=== PATIENT | male | born 1955 ===

== ENCOUNTER 2017-08-21 11:25 | Observation (INO) | payer MEDICAID ==
[2017-08-21 11:42] VITALS: BMI 26.1
--- NOTE | 2017-08-21 12:49 | RAD ---
PROCEDURE: CHEST RADIOGRAPH, 1 VIEW HISTORY: SOB COMPARISON: Chest radiograph dated 05/12/2015. FINDINGS: LUNGS: Clear. PLEURA: No pneumothorax or pleural fluid seen. CARDIOVASCULAR: Normal. OSSEOUS STRUCTURES: Unchanged. VISUALIZED UPPER ABDOMEN: Normal. OTHER FINDINGS: None. IMPRESSION: No active disease.
[2017-08-21 12:50] LABS: BASO % 0.3 % (0.0-2.0); EOS # 0.1 K/uL (0.0-0.7); EOS % 1.1 % (0.0-4.0); HEMOGLOBIN 13.8 g/dL (12.0-18.0); LYMPH # 3.5 K/uL (1.0-4.3); LYMPH % 31.2 % (20.0-40.0); MEAN CORPUSCULAR HEMOGLOBIN 31.2 pg (27.0-31.0); MEAN CORPUSCULAR HGB CONC 35.1 g/dL (33.0-37.0); MEAN PLATELET VOLUME 11.1 fL (7.2-11.7); MONO # 0.8 K/uL (0.0-0.8); MONO % 7.5 % (0.0-10.0); NEUT # 6.8 K/uL (1.8-7.0); NEUT % 59.9 % (50.0-75.0); NRBC % 0.1 % (0.0-2.0); RBC 4.42 Mil/uL (4.40-5.90); RED CELL DISTRIBUTION WIDTH 13.4 % (11.5-14.5); WHITE BLOOD COUNT 11.3 K/uL (4.8-10.8)
[2017-08-21 12:58] LABS: INR 1.1; PARTIAL THROMBOPLASTIN TIME 41 SECONDS (21-34)
[2017-08-21 13:03] LABS: ALB/GLOB RATIO 1.1 (1.0-2.1); ALBUMIN 4.4 g/dL (3.5-5.0); ALT/SGPT 9 U/L (21-72); AST/SGOT 16 U/L (17-59); BLOOD UREA NITROGEN 18 mg/dL (9-20); CALCIUM 9.9 mg/dl (8.6-10.4); GFR AFRICAN-AMERICAN > 60; GFR NON-AFRICAN AMERICAN > 60; LIPASE 132 U/L (23-300)
[2017-08-21 13:14] LABS: B-TYPE NATRIURETIC PEPTIDE 168 pg/mL (0-900); CK-MB 0.67 ng/mL (0.0-3.38)
[2017-08-21 13:28] LABS: D DIMER < 200 ng/mlDDU (0-243)
[2017-08-21 13:48] LABS: SQUAMOUS EPITHIAL < 1 /hpf (0-5); URINE BILIRUBIN NEGATIVE (NEGATIVE); URINE BLOOD NEGATIVE (NEGATIVE); URINE CLARITY Clear (Clear); URINE COLOR Yellow (YELLOW); URINE GLUCOSE (UA) 1+ mg/dL (Normal); URINE LEUKOCYTE ESTERASE NEG Leu/uL (Negative); URINE PROTEIN NEGATIVE (NEGATIVE)
--- NOTE | 2017-08-21 13:55 | C.PDOC ---
History Of Present Illness 61-year-old male, PMHx includes Hypertension and Diabetes, presents to the emergency department with complaints of shortness of breath for the past two days. Patient notes "a little bit mid-sternal chest pain." Secondary complaint is non-traumatic right foot pain for the past two days. Time Seen by Provider: 08/21/17 11:59 Chief Complaint (Nursing): Shortness Of Breath History Per: Patient History/Exam Limitations: no limitations Current Symptoms Are (Timing): Still Present Past Medical History Reviewed: Historical Data, Nursing Documentation, Vital Signs Vital Signs: Last Vital Signs Temp 98 F 08/21/17 16:59 Pulse 79 08/21/17 16:59 Resp 18 08/21/17 16:59 BP 126/79 08/21/17 16:59 Pulse Ox 98 08/21/17 16:59 - Medical History PMH: HTN, Hypercholesterolemia Denies: Chronic Kidney Disease Surgical History: Cholecystectomy (12/2015) - [facility] Procedures VACCINATION NEC (03/11/14) Family History: States: No Known Family Hx - Social History Hx Tobacco Use: No Hx Alcohol Use: No Hx Substance Use: No - Immunization History Hx Tetanus Toxoid Vaccination: Yes Hx Influenza Vaccination: Yes Hx Pneumococcal Vaccination: Yes Review Of Systems Constitutional: Negative for: Fever, Chills Cardiovascular: Negative for: Chest Pain, Palpitations Respiratory: Positive for: Shortness of Breath Musculoskeletal: Positive for: Foot Pain (right first toe). Negative for: Back Pain Neurological: Negative for: Weakness, Numbness, Headache, Dizziness Physical Exam - Physical Exam Appears: Non-toxic, No Acute Distress, Other (speaking in full sentences) Skin: Warm, Dry, No Rash Head: Normacephalic Eye(s): bilateral: PERRL Nose: Normal Oral Mucosa: Moist Lips: Normal Appearing Neck: Normal ROM Cardiovascular: Rhythm Regular, No Murmur Respiratory: Normal Breath Sounds, No Decreased Breath Sounds, No Accessory Muscle Use Extremity: Normal ROM, No Deformity, Other (right lower extremity: swelling and tenderness to first digit) Pulses: Left Dorsalis Pedis: Normal, Right Dorsalis Pedis: Normal Neurological/Psych: Oriented x3, Normal Speech ED Course And Treatment - Laboratory Results Result Diagrams: 08/21/17 12:46 08/21/17 12:46 ECG: Interpreted By Me ECG Rhythm: Sinus Rhythm ECG Interpretation: No Acute Changes Rate From EC O2 Sat by Pulse Oximetry: 100 (RA) Pulse Ox Interpretation: Normal - Other Rad CXR X-Ray: Viewed By Me, Read By Radiologist Interpretation: Accession No. : [id number]. Patient Name / ID : JAKE Calderón / [id number]. Exam Date : 08/21/2017 12:37:24 ( Approved ). Study Comment : Sex / Age : M / [id number]. Creator : Poli Mir MD. Dictator : Poli Mir MD. Router Operator Radial : Fur Stylist : Poli Mir MD. Approver2 : Report Date : 08/21/2017 12:48:21. My Comment : . PROCEDURE: CHEST RADIOGRAPH, 1 VIEW. HISTORY: SOB. COMPARISON: Chest radiograph dated 05/12/2015. FINDINGS: LUNGS: Clear. PLEURA: No pneumothorax or pleural fluid seen. CARDIOVASCULAR: Normal. OSSEOUS STRUCTURES: Unchanged. VISUALIZED UPPER ABDOMEN: Normal. OTHER FINDINGS: None. IMPRESSION: No active disease. Progress Note: EKG, bloodwork Chest X-Ray, UA ordered and reviewed. Pt treated with Toradol and Aspirin. Disposition - Disposition Disposition: HOME/ ROUTINE - Scribe Statement The provider has reviewed the documentation as recorded by the Scribe (Juan Jose Ott) All medical record entries made by the Scribe were at my direction and personally dictated by me. I have reviewed the chart and agree that the record accurately reflects my personal performance of the history, physical exam, medical decision making, and the department course for this patient. I have also personally directed, reviewed, and agree with the discharge instructions and disposition.
--- NOTE | 2017-08-21 13:55 | C.PDOC ---
Time Seen by Provider: 08/21/17 11:59 Chief Complaint (Nursing): Shortness Of Breath Past Medical History Vital Signs: Last Vital Signs Temp 98 F 08/21/17 13:53 Pulse 87 08/21/17 13:53 Resp 18 08/21/17 13:53 BP 126/73 08/21/17 13:53 Pulse Ox 98 08/21/17 13:53 - Medical History PMH: HTN, Hypercholesterolemia Denies: Chronic Kidney Disease Surgical History: Cholecystectomy (12/2015) - [facility] Procedures VACCINATION NEC (03/11/14) - Social History Hx Tobacco Use: No Hx Alcohol Use: No Hx Substance Use: No - Immunization History Hx Tetanus Toxoid Vaccination: Yes Hx Influenza Vaccination: Yes Hx Pneumococcal Vaccination: Yes ED Course And Treatment - Laboratory Results Result Diagrams: 08/21/17 12:46 08/21/17 12:46 O2 Sat by Pulse Oximetry: 98 Disposition - Disposition Forms: [employer] (Indonesian)
[2017-08-21 19:28] VITALS: RESP 20
--- NOTE | 2017-08-21 19:58 | CP.PCM.HP ---
Past Patient History - Infectious Disease Hx of Infectious Diseases: None - Past Medical History & Family History Past Medical History?: Yes - Past Social History Smoking Status: Unknown If Ever Smoked - CARDIAC Hx Hypercholesterolemia: Yes Hx Hypertension: Yes - PULMONARY Hx Respiratory Disorders: No - RENAL Hx Chronic Kidney Disease: No - ENDOCRINE/METABOLIC Hx Diabetes Mellitus Type 2: Yes - MUSCULOSKELETAL/RHEUMATOLOGICAL Hx Falls: No - GASTROINTESTINAL Hx Nausea: No - PSYCHIATRIC Hx Substance Use: No - SURGICAL HISTORY Hx Cholecystectomy: Yes (12/2015) - ANESTHESIA Hx Anesthesia: Yes Hx Anesthesia Reactions: No Hx Malignant Hyperthermia: No Meds Allergies/Adverse Reactions: Allergies Allergy/AdvReac Type Severity Reaction Status Date / Time No Known Allergies Allergy Verified 08/21/17 11:33 Physical Exam - Constitutional Appears: Well - Head Exam Head Exam: ATRAUMATIC, NORMAL INSPECTION, NORMOCEPHALIC - Eye Exam Eye Exam: EOMI, Normal appearance, PERRL Pupil Exam: NORMAL ACCOMODATION, PERRL - ENT Exam ENT Exam: Mucous Membranes Moist, Normal Exam - Neck Exam Neck exam: Positive for: Normal Inspection - Respiratory Exam Respiratory Exam: Decreased Breath Sounds - Cardiovascular Exam Cardiovascular Exam: REGULAR RHYTHM, +S1, +S2 - GI/Abdominal Exam GI & Abdominal Exam: Diminished Bowel Sounds, Soft - Rectal Exam Rectal Exam: Deferred Results - Vital Signs Recent Vital Signs: Last Vital Signs Temp 98.2 F 08/21/17 17:10 Pulse 69 08/21/17 17:10 Resp 20 08/21/17 17:10 BP 167/95 H 08/21/17 17:10 Pulse Ox 100 08/21/17 17:21 - Labs Result Diagrams: 08/21/17 12:46 08/21/17 12:46 Labs: Laboratory Results - last 24 hr 08/21/17 08/21/17 08/21/17 12:46 12:46 12:46 WBC 11.3 H RBC 4.42 Hgb 13.8 Hct 39.4 MCV 89.0 MCH 31.2 H MCHC 35.1 RDW 13.4 Plt Count 224 MPV 11.1 Neut % (Auto) 59.9 Lymph % (Auto) 31.2 [place] % (Auto) 7.5 Eos % (Auto) 1.1 Baso % (Auto) 0.3 Neut # (Auto) 6.8 Lymph # (Auto) 3.5 [place] # (Auto) 0.8 Eos # (Auto) 0.1 Baso # (Auto) 0.0 PT 12.0 INR 1.1 APTT 41 H D-Dimer, Quantitative < 200 Sodium 145 Potassium 4.0 Chloride 101 Carbon Dioxide 28 Anion Gap 20 BUN 18 Creatinine 1.2 Est GFR ( Amer) > 60 Est GFR (Non-Af Amer) > 60 POC Glucose (mg/dL) Random Glucose 189 H Calcium 9.9 Total Bilirubin 0.6 AST 16 L ALT 9 L D Alkaline Phosphatase 82 Total Creatine Kinase 66 CK-MB (Mass) 0.67 Troponin I < 0.0120 NT-Pro-B Natriuret Pep 168 Total Protein 8.6 H Albumin 4.4 Globulin 4.1 H Albumin/Globulin Ratio 1.1 Lipase 132 Urine Color Urine Clarity Urine pH Ur Specific [place] Urine Protein Urine Glucose (UA) Urine Ketones Urine Blood Urine Nitrate Urine Bilirubin Urine Urobilinogen Ur Leukocyte Esterase Urine WBC (Auto) Urine RBC (Auto) Ur Squamous Epith Cells 08/21/17 08/21/17 13:17 17:21 WBC RBC Hgb Hct MCV MCH MCHC RDW Plt Count MPV Neut % (Auto) Lymph % (Auto) [place] % (Auto) Eos % (Auto) Baso % (Auto) Neut # (Auto) Lymph # (Auto) [place] # (Auto) Eos # (Auto) Baso # (Auto) PT INR APTT D-Dimer, Quantitative Sodium Potassium Chloride Carbon Dioxide Anion Gap BUN Creatinine Est GFR ( Amer) Est GFR (Non-Af Amer) POC Glucose (mg/dL) 94 Random Glucose Calcium Total Bilirubin AST ALT Alkaline Phosphatase Total Creatine Kinase CK-MB (Mass) Troponin I NT-Pro-B Natriuret Pep Total Protein Albumin Globulin Albumin/Globulin Ratio Lipase Urine Color Yellow Urine Clarity Clear Urine pH 6.0 Ur Specific [place] 1.019 Urine Protein Negative Urine Glucose (UA) 1+ H Urine Ketones Negative Urine Blood Negative Urine Nitrate Negative Urine Bilirubin Negative Urine Urobilinogen 2.0 Ur Leukocyte Esterase Neg Urine WBC (Auto) 1 Urine RBC (Auto) 2 Ur Squamous Epith Cells < 1
[2017-08-21] MEDS: Albuterol-Ipratrop 3 mg / 0.5 (3 ml) UD INH SCH (20:16)
[2017-08-21 20:57] LABS: CK-MB 0.65 ng/mL (0.0-3.38)
[2017-08-22] MEDS: Albuterol-Ipratrop 3 mg / 0.5 (3 ml) UD INH SCH ×4 (01:51→19:36)
[2017-08-22 08:18] LABS: CK-MB 0.62 ng/mL (0.0-3.38)
--- NOTE | 2017-08-22 08:46 | CP.PCM.CON ---
History of Present Illness - History of Present Illness History of Present Illness: 61 year old man with following choronic medical problems 1. Chronic HTN - stable 2. Chronic Dyslipidemia - stable 3. DM chronic on metformin He is reporting chest pain. Sharp in character. Occurs in the setting of cough and URI symptoms. Pain is not modified by exertion. Review of Systems - Review of Systems All systems: reviewed and no additional remarkable complaints except Past Patient History - Infectious Disease Hx of Infectious Diseases: None - Past Medical History & Family History Past Medical History?: Yes - Past Social History Smoking Status: Unknown If Ever Smoked - CARDIAC Hx Hypercholesterolemia: Yes Hx Hypertension: Yes - PULMONARY Hx Respiratory Disorders: No - RENAL Hx Chronic Kidney Disease: No - ENDOCRINE/METABOLIC Hx Diabetes Mellitus Type 2: Yes - MUSCULOSKELETAL/RHEUMATOLOGICAL Hx Falls: No - GASTROINTESTINAL Hx Nausea: No - PSYCHIATRIC Hx Substance Use: No - SURGICAL HISTORY Hx Cholecystectomy: Yes (12/2015) - ANESTHESIA Hx Anesthesia: Yes Hx Anesthesia Reactions: No Hx Malignant Hyperthermia: No Meds Allergies/Adverse Reactions: Allergies Allergy/AdvReac Type Severity Reaction Status Date / Time No Known Allergies Allergy Verified 08/21/17 11:33 - Medications Medications: Current Medications Albuterol/Ipratropium (Duoneb 3 Mg/0.5 Mg (3 Ml) Ud) 3 ml INH RQ6 [facility] Last Admin: 08/22/17 08:16 Dose: 3 ml Amlodipine Besylate (Norvasc) 10 mg PO DAILY [facility] Aspirin (Aspirin Chewable) 324 mg PO DAILY [facility] Losartan Potassium (Cozaar) 12.5 mg PO DAILY [facility] Tramadol HCl (Ultram) 50 mg PO Q6 PRN PRN Reason: Pain, moderate (4-7) Last Admin: 08/21/17 20:15 Dose: 50 mg Physical Exam - Constitutional Appears: Well, Non-toxic, Older Than Stated Age - Head Exam Head Exam: ATRAUMATIC, NORMAL INSPECTION - Eye Exam Eye Exam: PERRL, Scleral icterus - ENT Exam ENT Exam: Mucous Membranes Moist, Normal External Ear Exam - Neck Exam Neck exam: Negative for: Lymphadenopathy - Respiratory Exam Respiratory Exam: Clear to Auscultation Bilateral, NORMAL BREATHING PATTERN - Cardiovascular Exam Cardiovascular Exam: REGULAR RHYTHM, RRR, +S1, +S2. absent: JVD - GI/Abdominal Exam GI & Abdominal Exam: Normal Bowel Sounds. absent: Organomegaly - Extremities Exam Extremities exam: Positive for: pedal pulses present. Negative for: pedal edema - Neurological Exam Neurological exam: CN II-XII Intact, Oriented x3 - Psychiatric Exam Psychiatric exam: Normal Affect, Normal Mood Results - Vital Signs Recent Vital Signs: Last Vital Signs Temp 98.0 F 08/22/17 08:23 Pulse 64 08/22/17 08:23 Resp 20 08/22/17 08:23 BP 142/84 08/22/17 08:23 Pulse Ox 100 08/22/17 08:23 - Labs Result Diagrams: 08/21/17 12:46 08/21/17 12:46 Labs: Laboratory Results - last 24 hr 08/21/17 08/21/17 08/21/17 12:46 12:46 12:46 WBC 11.3 H RBC 4.42 Hgb 13.8 Hct 39.4 MCV 89.0 MCH 31.2 H MCHC 35.1 RDW 13.4 Plt Count 224 MPV 11.1 Neut % (Auto) 59.9 Lymph % (Auto) 31.2 [place] % (Auto) 7.5 Eos % (Auto) 1.1 Baso % (Auto) 0.3 Neut # (Auto) 6.8 Lymph # (Auto) 3.5 [place] # (Auto) 0.8 Eos # (Auto) 0.1 Baso # (Auto) 0.0 PT 12.0 INR 1.1 APTT 41 H D-Dimer, Quantitative < 200 Sodium 145 Potassium 4.0 Chloride 101 Carbon Dioxide 28 Anion Gap 20 BUN 18 Creatinine 1.2 Est GFR ( Amer) > 60 Est GFR (Non-Af Amer) > 60 POC Glucose (mg/dL) Random Glucose 189 H Calcium 9.9 Total Bilirubin 0.6 AST 16 L ALT 9 L D Alkaline Phosphatase 82 Total Creatine Kinase 66 CK-MB (Mass) 0.67 Troponin I < 0.0120 NT-Pro-B Natriuret Pep 168 Total Protein 8.6 H Albumin 4.4 Globulin 4.1 H Albumin/Globulin Ratio 1.1 Lipase 132 Urine Color Urine Clarity Urine pH Ur Specific [place] Urine Protein Urine Glucose (UA) Urine Ketones Urine Blood Urine Nitrate Urine Bilirubin Urine Urobilinogen Ur Leukocyte Esterase Urine WBC (Auto) Urine RBC (Auto) Ur Squamous Epith Cells 08/21/17 08/21/17 08/21/17 13:17 17:21 20:21 WBC RBC Hgb Hct MCV MCH MCHC RDW Plt Count MPV Neut % (Auto) Lymph % (Auto) [place] % (Auto) Eos % (Auto) Baso % (Auto) Neut # (Auto) Lymph # (Auto) [place] # (Auto) Eos # (Auto) Baso # (Auto) PT INR APTT D-Dimer, Quantitative Sodium Potassium Chloride Carbon Dioxide Anion Gap BUN Creatinine Est GFR ( Amer) Est GFR (Non-Af Amer) POC Glucose (mg/dL) 94 Random Glucose Calcium Total Bilirubin AST ALT Alkaline Phosphatase Total Creatine Kinase 47 L CK-MB (Mass) 0.65 Troponin I < 0.0120 NT-Pro-B Natriuret Pep Total Protein Albumin Globulin Albumin/Globulin Ratio Lipase Urine Color Yellow Urine Clarity Clear Urine pH 6.0 Ur Specific [place] 1.019 Urine Protein Negative Urine Glucose (UA) 1+ H Urine Ketones Negative Urine Blood Negative Urine Nitrate Negative Urine Bilirubin Negative Urine Urobilinogen 2.0 Ur Leukocyte Esterase Neg Urine WBC (Auto) 1 Urine RBC (Auto) 2 Ur Squamous Epith Cells < 1 08/21/17 08/22/17 08/22/17 21:29 06:50 07:10 WBC RBC Hgb Hct MCV MCH MCHC RDW Plt Count MPV Neut % (Auto) Lymph % (Auto) [place] % (Auto) Eos % (Auto) Baso % (Auto) Neut # (Auto) Lymph # (Auto) [place] # (Auto) Eos # (Auto) Baso # (Auto) PT INR APTT D-Dimer, Quantitative Sodium Potassium Chloride Carbon Dioxide Anion Gap BUN Creatinine Est GFR ( Amer) Est GFR (Non-Af Amer) POC Glucose (mg/dL) 163 H 154 H Random Glucose Calcium Total Bilirubin AST ALT Alkaline Phosphatase Total Creatine Kinase 53 L CK-MB (Mass) 0.62 Troponin I < 0.0120 NT-Pro-B Natriuret Pep Total Protein Albumin Globulin Albumin/Globulin Ratio Lipase Urine Color Urine Clarity Urine pH Ur Specific [place] Urine Protein Urine Glucose (UA) Urine Ketones Urine Blood Urine Nitrate Urine Bilirubin Urine Urobilinogen Ur Leukocyte Esterase Urine WBC (Auto) Urine RBC (Auto) Ur Squamous Epith Cells - EKG Data EKG Interpreted by: Myself EKG shows normal: Sinus rhythm Rate: Normal - Imaging and Cardiology Chest x-ray Status: Image reviewed by me (No infiltrates or effusions) Assessment & Plan - Assessment and Plan (Free Text) Assessment: 61 year old man with chest pain likely due to intercostal tenderness, serial trop is negative for TX, EKG is negative for ischemia. HTN is chronic and stable amloidpine, losartan Dyslipidemia is chronic and stable on statin DM is chronic and off insulin sliding scale, can resume metformin upon d/c
[2017-08-22] MEDS: Losartan 12.5 MG TAB PO SCH (09:31)
[2017-08-22] MEDS: Enoxaparin 40 mg Syringe SC SCH (09:31)
--- NOTE | 2017-08-22 13:30 | CP.PCM.CON ---
History of Present Illness - History of Present Illness History of Present Illness: 61 year old male patient with PMHx of DM, HTN, Gout was seen at bedside this morning after request for podiatry consultation. Patient presents with red, hot swollen right foot 1st MTPJ with pain. Patient sates that he first noticed the pain sometime last week and the pain has now gotten much better than when it first started. Patient denies of taking any medication for the foot pain. Patient admits history of gout in the past. Patient denies of any trauma to right lower extremity. Patient denies of any N/V/F/C or SOB today Review of Systems - Constitutional Constitutional: As Per HPI Past Patient History - Infectious Disease Hx of Infectious Diseases: None - Past Medical History & Family History Past Medical History?: Yes - Past Social History Smoking Status: Unknown If Ever Smoked - CARDIAC Hx Hypercholesterolemia: Yes Hx Hypertension: Yes - PULMONARY Hx Respiratory Disorders: No - RENAL Hx Chronic Kidney Disease: No - ENDOCRINE/METABOLIC Hx Diabetes Mellitus Type 2: Yes - MUSCULOSKELETAL/RHEUMATOLOGICAL Hx Falls: No - GASTROINTESTINAL Hx Nausea: No - PSYCHIATRIC Hx Substance Use: No - SURGICAL HISTORY Hx Cholecystectomy: Yes (12/2015) - ANESTHESIA Hx Anesthesia: Yes Hx Anesthesia Reactions: No Hx Malignant Hyperthermia: No Meds Allergies/Adverse Reactions: Allergies Allergy/AdvReac Type Severity Reaction Status Date / Time No Known Allergies Allergy Verified 08/21/17 11:33 - Medications Medications: Current Medications Albuterol/Ipratropium (Duoneb 3 Mg/0.5 Mg (3 Ml) Ud) 3 ml INH RQ6 [facility] Last Admin: 08/22/17 08:16 Dose: 3 ml Amlodipine Besylate (Norvasc) 10 mg PO DAILY [facility] Last Admin: 08/22/17 09:31 Dose: 10 mg Aspirin (Aspirin Chewable) 324 mg PO DAILY [facility] Last Admin: 08/22/17 09:30 Dose: 324 mg Enoxaparin Sodium (Lovenox) 40 mg SC DAILY [facility] Last Admin: 08/22/17 09:31 Dose: 40 mg Losartan Potassium (Cozaar) 12.5 mg PO DAILY [facility] Last Admin: 08/22/17 09:31 Dose: 12.5 mg Tramadol HCl (Ultram) 50 mg PO Q6 PRN PRN Reason: Pain, moderate (4-7) Last Admin: 08/21/17 20:15 Dose: 50 mg Physical Exam - Constitutional Appears: Well, Non-toxic, No Acute Distress - Head Exam Head Exam: ATRAUMATIC - Extremities Exam Additional comments: Right lower extremity exam DERM: Mild erythema noted at the level of right foot 1st MTPJ extending proximally and distally. No open wound noted. No drainage noted. No mal-odor noted. VASC: Right foot warm to touch compared to that of left. Palpable DP and PT noted bilaterally 2/4. MICROBIOLOGY ANALYST less than 3 seconds noted to all digits ORTHO: Pain on palpation and passive ROM to right 1st MTPJ NEURO: Gross sensation intact - Neurological Exam Neurological exam: Alert, Oriented x3 - Psychiatric Exam Psychiatric exam: Normal Affect, Normal Mood - Skin Skin Exam: Normal Color, Warm Results - Vital Signs Recent Vital Signs: Last Vital Signs Temp 98.0 F 08/22/17 08:23 Pulse 64 08/22/17 08:23 Resp 20 08/22/17 08:23 BP 142/84 08/22/17 08:23 Pulse Ox 100 08/22/17 08:23 - Labs Result Diagrams: 08/21/17 12:46 08/21/17 12:46 Labs: Laboratory Results - last 24 hr 08/21/17 08/21/17 08/21/17 12:46 13:17 17:21 D-Dimer, Quantitative < 200 POC Glucose (mg/dL) 94 Total Creatine Kinase CK-MB (Mass) Troponin I Urine Color Yellow Urine Clarity Clear Urine pH 6.0 Ur Specific [place] 1.019 Urine Protein Negative Urine Glucose (UA) 1+ H Urine Ketones Negative Urine Blood Negative Urine Nitrate Negative Urine Bilirubin Negative Urine Urobilinogen 2.0 Ur Leukocyte Esterase Neg Urine WBC (Auto) 1 Urine RBC (Auto) 2 Ur Squamous Epith Cells < 1 08/21/17 08/21/17 08/22/17 20:21 21:29 06:50 D-Dimer, Quantitative POC Glucose (mg/dL) 163 H 154 H Total Creatine Kinase 47 L CK-MB (Mass) 0.65 Troponin I < 0.0120 Urine Color Urine Clarity Urine pH Ur Specific [place] Urine Protein Urine Glucose (UA) Urine Ketones Urine Blood Urine Nitrate Urine Bilirubin Urine Urobilinogen Ur Leukocyte Esterase Urine WBC (Auto) Urine RBC (Auto) Ur Squamous Epith Cells 08/22/17 08/22/17 07:10 11:42 D-Dimer, Quantitative POC Glucose (mg/dL) 288 H Total Creatine Kinase 53 L CK-MB (Mass) 0.62 Troponin I < 0.0120 Urine Color Urine Clarity Urine pH Ur Specific [place] Urine Protein Urine Glucose (UA) Urine Ketones Urine Blood Urine Nitrate Urine Bilirubin Urine Urobilinogen Ur Leukocyte Esterase Urine WBC (Auto) Urine RBC (Auto) Ur Squamous Epith Cells Assessment & Plan - Assessment and Plan (Free Text) Assessment: 61 year old male patient presents painful right 1st MTPJ; Gout vs fracture Plan: Patient was seen, evaluated at bedside with all questions answered discussed in detail with Dr. Ramos labs and vitals reviewed; afebrile, WBC 11 Uric Acid ordered Xray of right foot ordered Patient to remain non-weight bearing to right lower extremity Podiatry will continue to follow inhouse
--- NOTE | 2017-08-22 15:14 | CARD ---
APPROVED REPORT EKG Measurement Heart [id number] <Conclusion> Normal sinus rhythm Normal ECG
--- NOTE | 2017-08-22 15:43 | RAD ---
PROCEDURE: Right Foot Radiographs. HISTORY: right foot pain COMPARISON: None. FINDINGS: BONES: No acute fracture or destructive bony lesion identified. JOINTS: Moderate hallux valgus deformity SOFT TISSUES: Normal. OTHER FINDINGS: None. IMPRESSION: Moderate hallux valgus deformity. No acute fracture or dislocation identified.
--- NOTE | 2017-08-22 16:50 | CP.PCM.CON ---
Past Patient History - Infectious Disease Hx of Infectious Diseases: None - Past Medical History & Family History Past Medical History?: Yes - Past Social History Smoking Status: Unknown If Ever Smoked - CARDIAC Hx Hypercholesterolemia: Yes Hx Hypertension: Yes - PULMONARY Hx Respiratory Disorders: No - RENAL Hx Chronic Kidney Disease: No - ENDOCRINE/METABOLIC Hx Diabetes Mellitus Type 2: Yes - MUSCULOSKELETAL/RHEUMATOLOGICAL Hx Falls: No - GASTROINTESTINAL Hx Nausea: No - PSYCHIATRIC Hx Substance Use: No - SURGICAL HISTORY Hx Cholecystectomy: Yes (12/2015) - ANESTHESIA Hx Anesthesia: Yes Hx Anesthesia Reactions: No Hx Malignant Hyperthermia: No Meds Allergies/Adverse Reactions: Allergies Allergy/AdvReac Type Severity Reaction Status Date / Time No Known Allergies Allergy Verified 08/21/17 11:33 - Medications Medications: Current Medications Albuterol/Ipratropium (Duoneb 3 Mg/0.5 Mg (3 Ml) Ud) 3 ml INH RQ6 [facility] Last Admin: 08/22/17 13:48 Dose: 3 ml Amlodipine Besylate (Norvasc) 10 mg PO DAILY [facility] Last Admin: 08/22/17 09:31 Dose: 10 mg Aspirin (Aspirin Chewable) 324 mg PO DAILY [facility] Last Admin: 08/22/17 09:30 Dose: 324 mg Enoxaparin Sodium (Lovenox) 40 mg SC DAILY [facility] Last Admin: 08/22/17 09:31 Dose: 40 mg Losartan Potassium (Cozaar) 12.5 mg PO DAILY [facility] Last Admin: 08/22/17 09:31 Dose: 12.5 mg Tramadol HCl (Ultram) 50 mg PO Q6 PRN PRN Reason: Pain, moderate (4-7) Last Admin: 08/21/17 20:15 Dose: 50 mg Results - Vital Signs Recent Vital Signs: Last Vital Signs Temp 98.0 F 08/22/17 08:23 Pulse 64 08/22/17 08:23 Resp 20 08/22/17 08:23 BP 142/84 08/22/17 08:23 Pulse Ox 100 08/22/17 08:23 - Labs Result Diagrams: 08/21/17 12:46 08/21/17 12:46 Labs: Laboratory Results - last 24 hr 08/21/17 08/21/17 08/21/17 17:21 20:21 21:29 POC Glucose (mg/dL) 94 163 H Total Creatine Kinase 47 L CK-MB (Mass) 0.65 Troponin I < 0.0120 08/22/17 08/22/17 08/22/17 06:50 07:10 11:42 POC Glucose (mg/dL) 154 H 288 H Total Creatine Kinase 53 L CK-MB (Mass) 0.62 Troponin I < 0.0120
--- NOTE | 2017-08-22 19:39 | CP.PCM.PN ---
Subjective - Date & Time of Evaluation Date of Evaluation: 08/22/17 Time of Evaluation: 10:40 - Subjective Subjective: Clinically same Objective - Vital Signs/Intake and Output Vital Signs (last 24 hours): Temp Pulse Resp BP Pulse Ox 98.4 F 70 20 120/71 99 08/22/17 15:00 08/22/17 15:00 08/22/17 15:00 08/22/17 15:00 08/22/17 15:00 - Medications Medications: Current Medications Albuterol/Ipratropium (Duoneb 3 Mg/0.5 Mg (3 Ml) Ud) 3 ml INH RQ6 [facility] Last Admin: 08/22/17 19:36 Dose: 3 ml Amlodipine Besylate (Norvasc) 10 mg PO DAILY [facility] Last Admin: 08/22/17 09:31 Dose: 10 mg Aspirin (Aspirin Chewable) 324 mg PO DAILY [facility] Last Admin: 08/22/17 09:30 Dose: 324 mg Enoxaparin Sodium (Lovenox) 40 mg SC DAILY [facility] Last Admin: 08/22/17 09:31 Dose: 40 mg Losartan Potassium (Cozaar) 12.5 mg PO DAILY [facility] Last Admin: 08/22/17 09:31 Dose: 12.5 mg Tramadol HCl (Ultram) 50 mg PO Q6 PRN PRN Reason: Pain, moderate (4-7) Last Admin: 08/21/17 20:15 Dose: 50 mg - Labs Labs: 08/21/17 12:46 08/21/17 12:46 PT 12.0 SECONDS (9.7-12.2) 08/21/17 12:46 INR 1.1 08/21/17 12:46 APTT 41 SECONDS (21-34) H 08/21/17 12:46 - Constitutional Appears: Well - Head Exam Head Exam: ATRAUMATIC, NORMAL INSPECTION - Eye Exam Eye Exam: Normal appearance - ENT Exam ENT Exam: Mucous Membranes Moist - Neck Exam Neck Exam: Normal Inspection - Respiratory Exam Respiratory Exam: Decreased Breath Sounds - Cardiovascular Exam Cardiovascular Exam: REGULAR RHYTHM - GI/Abdominal Exam GI & Abdominal Exam: Diminished Bowel Sounds - Rectal Exam Rectal Exam: Deferred Assessment and Plan (1) Chest pain Status: Acute (2) Exertional dyspnea Status: Acute (3) Fever and chills Status: Acute (4) Kidney calculi Status: Acute (5) Leukocytosis Status: Acute (6) NSTEMI (non-ST elevated myocardial infarction) Status: Acute (7) Sepsis Status: Acute
[2017-08-23] MEDS: Albuterol-Ipratrop 3 mg / 0.5 (3 ml) UD INH SCH ×3 (01:15→13:10)
[2017-08-23 08:30] VITALS: BP 151/75; PULSE 88; TEMP 97.7; O2SAT 99
[2017-08-23] MEDS: Enoxaparin 40 mg Syringe SC SCH (10:25)
[2017-08-23] MEDS: Losartan 12.5 MG TAB PO SCH (10:44)
--- NOTE | 2017-08-23 13:03 | CP.PCM.PN ---
Subjective - Date & Time of Evaluation Date of Evaluation: 08/23/17 Time of Evaluation: 10:40 - Subjective Subjective: clinically same Objective - Vital Signs/Intake and Output Vital Signs (last 24 hours): Temp Pulse Resp BP Pulse Ox 97.7 F 88 20 151/75 H 99 08/23/17 08:28 08/23/17 08:28 08/23/17 08:28 08/23/17 08:28 08/23/17 08:28 Intake and Output: 08/23/17 08/23/17 06:59 18:59 Intake Total 120 Balance 120 - Medications Medications: Current Medications Albuterol/Ipratropium (Duoneb 3 Mg/0.5 Mg (3 Ml) Ud) 3 ml INH RQ6 [facility] Last Admin: 08/23/17 07:18 Dose: 3 ml Amlodipine Besylate (Norvasc) 10 mg PO DAILY [facility] Last Admin: 08/23/17 10:28 Dose: 10 mg Aspirin (Aspirin Chewable) 324 mg PO DAILY [facility] Last Admin: 08/23/17 10:25 Dose: 324 mg Enoxaparin Sodium (Lovenox) 40 mg SC DAILY [facility] Last Admin: 08/23/17 10:25 Dose: 40 mg Losartan Potassium (Cozaar) 12.5 mg PO DAILY [facility] Last Admin: 08/23/17 10:44 Dose: 12.5 mg Tramadol HCl (Ultram) 50 mg PO Q6 PRN PRN Reason: Pain, moderate (4-7) Last Admin: 08/21/17 20:15 Dose: 50 mg - Labs Labs: 08/21/17 12:46 08/21/17 12:46 PT 12.0 SECONDS (9.7-12.2) 08/21/17 12:46 INR 1.1 08/21/17 12:46 APTT 41 SECONDS (21-34) H 08/21/17 12:46 - Constitutional Appears: Well - Head Exam Head Exam: ATRAUMATIC, NORMAL INSPECTION, NORMOCEPHALIC - Eye Exam Eye Exam: EOMI, Normal appearance, PERRL Pupil Exam: NORMAL ACCOMODATION, PERRL - ENT Exam ENT Exam: Mucous Membranes Moist, Normal Exam - Neck Exam Neck Exam: Full ROM, Normal Inspection. absent: Lymphadenopathy - Respiratory Exam Respiratory Exam: Decreased Breath Sounds - Cardiovascular Exam Cardiovascular Exam: REGULAR RHYTHM, +S1, +S2 - GI/Abdominal Exam GI & Abdominal Exam: Soft, Diminished Bowel Sounds - Rectal Exam Rectal Exam: Deferred Assessment and Plan (1) Chest pain Status: Acute (2) Exertional dyspnea Status: Acute (3) Fever and chills Status: Acute (4) Kidney calculi Status: Acute (5) Leukocytosis Status: Acute (6) NSTEMI (non-ST elevated myocardial infarction) Status: Acute (7) Sepsis Status: Acute
--- NOTE | 2017-08-23 13:52 | CP.PCM.PN ---
Subjective - Date & Time of Evaluation Date of Evaluation: 08/23/17 Time of Evaluation: 13:52 Objective - Vital Signs/Intake and Output Vital Signs (last 24 hours): Temp Pulse Resp BP Pulse Ox 97.7 F 88 20 151/75 H 99 08/23/17 08:28 08/23/17 08:28 08/23/17 08:28 08/23/17 08:28 08/23/17 08:28 Intake and Output: 08/23/17 08/23/17 06:59 18:59 Intake Total 120 Balance 120 - Medications Medications: Current Medications Albuterol/Ipratropium (Duoneb 3 Mg/0.5 Mg (3 Ml) Ud) 3 ml INH RQ6 [facility] Last Admin: 08/23/17 13:10 Dose: 3 ml Amlodipine Besylate (Norvasc) 10 mg PO DAILY [facility] Last Admin: 08/23/17 10:28 Dose: 10 mg Aspirin (Aspirin Chewable) 324 mg PO DAILY [facility] Last Admin: 08/23/17 10:25 Dose: 324 mg Enoxaparin Sodium (Lovenox) 40 mg SC DAILY [facility] Last Admin: 08/23/17 10:25 Dose: 40 mg Losartan Potassium (Cozaar) 12.5 mg PO DAILY [facility] Last Admin: 08/23/17 10:44 Dose: 12.5 mg Tramadol HCl (Ultram) 50 mg PO Q6 PRN PRN Reason: Pain, moderate (4-7) Last Admin: 08/21/17 20:15 Dose: 50 mg - Labs Labs: 08/21/17 12:46 08/21/17 12:46 PT 12.0 SECONDS (9.7-12.2) 08/21/17 12:46 INR 1.1 08/21/17 12:46 APTT 41 SECONDS (21-34) H 08/21/17 12:46
--- NOTE | 2017-08-23 14:09 | CP.PCM.PN ---
Subjective - Date & Time of Evaluation Date of Evaluation: 08/23/17 Time of Evaluation: 14:07 - Subjective Subjective: PGY-[address] Cole's service: Pt seen and examined at bedside. No acute events overnight. Patient denies recurrence of chest pain since admission. States he has continued pain, swelling in his right lower extremity and has history of gouty attacks. Objective - Vital Signs/Intake and Output Vital Signs (last 24 hours): Temp Pulse Resp BP Pulse Ox 97.7 F 88 20 151/75 H 99 08/23/17 08:28 08/23/17 08:28 08/23/17 08:28 08/23/17 08:28 08/23/17 08:28 Intake and Output: 08/23/17 08/23/17 06:59 18:59 Intake Total 120 Balance 120 - Medications Medications: Current Medications Albuterol/Ipratropium (Duoneb 3 Mg/0.5 Mg (3 Ml) Ud) 3 ml INH RQ6 [facility] Last Admin: 08/23/17 13:10 Dose: 3 ml Amlodipine Besylate (Norvasc) 10 mg PO DAILY [facility] Last Admin: 08/23/17 10:28 Dose: 10 mg Aspirin (Aspirin Chewable) 324 mg PO DAILY [facility] Last Admin: 08/23/17 10:25 Dose: 324 mg Enoxaparin Sodium (Lovenox) 40 mg SC DAILY [facility] Last Admin: 08/23/17 10:25 Dose: 40 mg Losartan Potassium (Cozaar) 12.5 mg PO DAILY [facility] Last Admin: 08/23/17 10:44 Dose: 12.5 mg Tramadol HCl (Ultram) 50 mg PO Q6 PRN PRN Reason: Pain, moderate (4-7) Last Admin: 08/21/17 20:15 Dose: 50 mg - Labs Labs: 08/21/17 12:46 08/21/17 12:46 PT 12.0 SECONDS (9.7-12.2) 08/21/17 12:46 INR 1.1 08/21/17 12:46 APTT 41 SECONDS (21-34) H 08/21/17 12:46 - Constitutional Appears: Non-toxic, No Acute Distress - Head Exam Head Exam: ATRAUMATIC, NORMAL INSPECTION - Eye Exam Eye Exam: EOMI. absent: Scleral icterus Pupil Exam: PERRL - ENT Exam ENT Exam: Mucous Membranes Moist - Respiratory Exam Respiratory Exam: Clear to Ausculation Bilateral, NORMAL BREATHING PATTERN - Cardiovascular Exam Cardiovascular Exam: REGULAR RHYTHM, +S1, +S2 - GI/Abdominal Exam GI & Abdominal Exam: Soft, Tenderness, Normal Bowel Sounds - Extremities Exam Extremities Exam: Tenderness (1st MTP). absent: Normal Inspection, Pedal Edema - Back Exam Back Exam: absent: CVA tenderness (L), CVA tenderness (R) - Neurological Exam Neurological Exam: Alert, Awake, Oriented x3 - Psychiatric Exam Psychiatric exam: Normal Affect - Skin Skin Exam: Normal Color, Warm Assessment and Plan - Assessment and Plan (Free Text) Plan: Chest pain - R/o ACS Admitted to tele Reverse Unit Operator: Dr. Alonzo - Trop negative x 3, EKG (08/19/17): NSR, Normal rate, CXR (08/21/17): NAD SOB Resolved Dr. Ibarra, Pulm HTN Amlodipine 10mg PO Daily Losartan 12.5mg PO DAily Gout Attack (Podagra) Dr. Ramos consulted Xray right foot/toe (08/22/17): negative for acute fracture Disposition: Stable for discharge per cardiology. Will be given script for NSAID. Follow up with podiatry/Cardiology outpatient. Roosevelt Irving PGY-2
--- NOTE | 2017-08-23 14:39 | CP.PCM.PN ---
Subjective - Date & Time of Evaluation Date of Evaluation: 08/23/17 Time of Evaluation: 14:36 - Subjective Subjective: 61 year old male patient with PMHx of DM, HTN, Gout was seen at bedside this morning concerning possible gout to right 1st MTPJ. Patient states that the pain is improving and feels only mild pain when walking. Patient is able to ambulate without too much pain. Patient denies of any N/V/F/C or SOB today Objective - Vital Signs/Intake and Output Vital Signs (last 24 hours): Temp Pulse Resp BP Pulse Ox 97.7 F 88 20 151/75 H 99 08/23/17 08:28 08/23/17 08:28 08/23/17 08:28 08/23/17 08:28 08/23/17 08:28 Intake and Output: 08/23/17 08/23/17 06:59 18:59 Intake Total 120 Balance 120 - Medications Medications: Current Medications Albuterol/Ipratropium (Duoneb 3 Mg/0.5 Mg (3 Ml) Ud) 3 ml INH RQ6 [facility] Last Admin: 08/23/17 13:10 Dose: 3 ml Amlodipine Besylate (Norvasc) 10 mg PO DAILY [facility] Last Admin: 08/23/17 10:28 Dose: 10 mg Aspirin (Aspirin Chewable) 324 mg PO DAILY [facility] Last Admin: 08/23/17 10:25 Dose: 324 mg Enoxaparin Sodium (Lovenox) 40 mg SC DAILY [facility] Last Admin: 08/23/17 10:25 Dose: 40 mg Lidocaine (Lidoderm) 1 ea TD DAILY [facility] Losartan Potassium (Cozaar) 12.5 mg PO DAILY [facility] Last Admin: 08/23/17 10:44 Dose: 12.5 mg Tramadol HCl (Ultram) 50 mg PO Q6 PRN PRN Reason: Pain, moderate (4-7) Last Admin: 08/21/17 20:15 Dose: 50 mg - Labs Labs: 08/21/17 12:46 08/21/17 12:46 PT 12.0 SECONDS (9.7-12.2) 08/21/17 12:46 INR 1.1 08/21/17 12:46 APTT 41 SECONDS (21-34) H 08/21/17 12:46 - Constitutional Appears: Well, Non-toxic, No Acute Distress - Head Exam Head Exam: ATRAUMATIC - Extremities Exam Additional comments: Right lower extremity exam Gout condition appears improved compared to yesterday in terms of erythema and swelling DERM: Mild erythema noted at the level of right foot 1st MTPJ extending proximally and distally. No open wound noted. No drainage noted. No mal-odor noted. VASC: Right foot warm to touch compared to that of left. Palpable DP and PT noted bilaterally 2/4. [employer] less than 3 seconds noted to all digits ORTHO: Pain on palpation and passive ROM to right 1st MTPJ NEURO: Gross sensation intact - Neurological Exam Neurological Exam: Alert, Awake, Oriented x3 - Psychiatric Exam Psychiatric exam: Normal Affect, Normal Mood - Skin Skin Exam: Normal Color, Warm Assessment and Plan - Assessment and Plan (Free Text) Assessment: 61 year old male patient presents painful right 1st MTPJ; Gout vs fracture Plan: Patient was seen, evaluated at bedside with all questions answered discussed in detail with Dr. Ramos labs and vitals reviewed; afebrile Xray reveals no fracture Uric Acid 7.3 Lidoderm patch ordered; to be out bedside, podiatry will apply it Podiatry will continue to follow inhouse
[2017-08-24] MEDS ORDERED: Lidocaine 5% Patch TD SCH (10:00)
== END 2017-08-23 16:49 | disposition home or self-care (01) ==
LOC: C.ER 11:25 → C.9E 13:55 → C.6T 16:08
PROVIDERS: ADMIT Internal Medicine Nephrology; ATTEND Internal Medicine Nephrology
DX: R07.82 Intercostal pain (principal); I10 Essential (primary) hypertension; E78.5 Hyperlipidemia, unspecified; E11.9 Type 2 diabetes mellitus without complications
CPT/HCPCS: 36415; 71045; 73630; 80053; 81001; 82550; 82553; 82948; 83690; 83880; 84484; 84550; 85025; 85378; 85610; 85730; 93005; 94640; 96374; 99285; G0378; J1650; J1885